=== PATIENT | female | born 1975 | race African-American/Black ===

== ENCOUNTER 2020-01-31 15:26 | Emergency (ER) | payer OTHER ==
[~2020-01-31] VITALS: Ht 162.6 cm; Wt 77.6 kg
[2020-01-31 15:32] VITALS: BP 134/71
--- NOTE | 2020-01-31 15:44 | NUR ---
PT SEEN FOR BLE SWELLING WITH PAIN L>R AND PAIN IN L FOOT/ANKLE. PT DENIES ANY CALF TENDERNESS. LUNGS SOUNDS CLEAR FLAQUITA SOB AND CP. HEART RRR. NO C/O PAIN ANYWHERE ELSE.
[2020-01-31 16:26] LABS: BASOPHILS % (AUTO) 0.6 % (0.0-2.0); EOSINOPHILS # (AUTO) 0.1 K/uL (0-0.4); HEMATOCRIT 34.8 % (36-48); HEMOGLOBIN 11.8 g/dL (12.0-16.0); LYMPHOCYTES # (AUTO) 2.8 K/uL (2.5-16.5); LYMPHOCYTES % (AUTO) 42.2 % (20.5-51.1); MEAN CORPUSCULAR HEMOGLOBIN 33 pg (27-31); MEAN CORPUSCULAR HGB CONC 34 g/dL (33-37); MONOCYTES # (AUTO) 0.5 K/uL (0.8-1.0); MONOCYTES % (AUTO) 7.8 % (1.7-9.3); NEUTROPHILS # (AUTO) 3.2 K/uL (1.8-7.7); NEUTROPHILS % (AUTO) 48.4 % (42.2-75.2); PLATELET COUNT (AUTO) 266 K/uL (140-450); RED BLOOD CELL COUNT(AUTO) 3.59 MIL/uL (4.20-5.40); RED CELL DISTRIBUTION WIDTH 15.2 % (11.6-13.7); WHITE BLOOD COUNT (AUTO) 6.7 K/uL (4.8-10.8)
[2020-01-31 16:40] LABS: ALBUMIN 3.2 g/dL (3.4-5.0); ANION GAP 10.1 (8-16); CARBON DIOXIDE 28.8 mmol/L (21-32); CREATININE 1.2 mg/dL (0.6-1.3); TOTAL BILIRUBIN 0.3 mg/dL (0.0-1.0)
[2020-01-31 16:44] LABS: POTASSIUM 2.9 mmol/L (3.5-5.1)
[2020-01-31] MEDS ORDERED: KCL 20 MEQ/WATER INJ PREMIX 100 ML IV STA (17:17)
[2020-01-31] MEDS ORDERED: POTASSIUM CHLORIDE 10 MEQ TABER PO STA (18:39)
[2020-01-31] MEDS ORDERED: PROPOFOL 1000 MG/100 ML PREMIX 100 ML IV ONE (18:45)
--- NOTE | 2020-01-31 18:59 | NUR ---
Patient discharged with v/s stable. Written and verbal after care instructions given and explained. Patient alert, oriented and verbalized understanding of instructions. Ambulatory with steady gait. All questions addressed prior to discharge. ID band removed. Patient advised to follow up with PMD. Rx of TRIAMTERENE/HYDROCHLOROTHIAZIDE given. Patient educated on indication of medication including possible reaction and side effects. Opportunity to ask questions provided and answered.
== END 2020-01-31 18:59 | disposition home or self-care (01) ==
LOC: MED 15:26
DX: E87.70 Fluid overload, unspecified (principal); E87.6 Hypokalemia; J45.909 Unspecified asthma, uncomplicated; M41.9 Scoliosis, unspecified; Z88.0 Allergy status to penicillin
CPT/HCPCS: 36415; 71045; 80053; 83880; 84484; 85025; 85610; 85730; 93005; 99285; Q0092

== ENCOUNTER 2020-03-07 11:49 | Emergency (ER) | payer OTHER ==
[~2020-03-07] VITALS: Ht 165.1 cm; Wt 84.8 kg
[2020-03-07 11:52] VITALS: BP 109/57
--- NOTE | 2020-03-07 11:56 | NUR ---
Pt taken to bed 12.
--- NOTE | 2020-03-07 12:07 | NUR ---
44 y/o female from home c/o right ankle pain s/p mechanical trip and fall yesterday. Pt states 9/10 aching pain when trying to ambulate. Unable to bear weight on ankle. Skin warm, dry, intact with mild swelling noted. Positioned for comfort, VSS
[2020-03-07 13:38] VITALS: BP 109/57
--- NOTE | 2020-03-07 13:40 | NUR ---
Patient discharged with v/s stable. Written and verbal after care instructions given and explained. Patient verbalized understanding. Ambulatory with steady gait. All questions addressed prior to discharge. Advised to follow up with PMD.
== END 2020-03-07 13:40 | disposition home or self-care (01) ==
LOC: MED 11:49
DX: S93.401A Sprain of unspecified ligament of right ankle, initial encounter (principal); S93.601A Unspecified sprain of right foot, initial encounter; M79.671 Pain in right foot; J45.909 Unspecified asthma, uncomplicated; Y93.01 Activity, walking, marching and hiking; Y93.89 Activity, other specified; Y92.89 Other specified places as the place of occurrence of the external cause; Y99.8 Other external cause status
CPT/HCPCS: 29515; 73610; 73630; 99284

== ENCOUNTER 2020-04-07 09:25 | Emergency (ER) | payer OTHER ==
[~2020-04-07] VITALS: Ht 165.1 cm; Wt 86.6 kg
[2020-04-07 09:45] VITALS: BP 104/61
--- NOTE | 2020-04-07 09:45 | NUR ---
C/O L KNEE PAIN X1 DAY. NO INJURY OR TRAUMA
[2020-04-07 10:22] VITALS: BP 104/61
== END 2020-04-07 10:22 | disposition home or self-care (01) ==
LOC: MED 09:25
DX: M13.862 Other specified arthritis, left knee (principal); G89.29 Other chronic pain; J45.909 Unspecified asthma, uncomplicated; Z98.890 Other specified postprocedural states; Z88.0 Allergy status to penicillin
CPT/HCPCS: 99282

== ENCOUNTER 2020-04-18 15:53 | Emergency (ER) | payer OTHER ==
[~2020-04-18] VITALS: Ht 165.1 cm; Wt 87.5 kg
[2020-04-18 16:15] VITALS: BP 109/64
--- NOTE | 2020-04-18 16:25 | NUR ---
HOMELESS. 44/F BIB SELF C/O BILATERAL LOWER LEGS PAIN 9/10 & SWELLING X 3 DAYS. DENIES TRAUMA. PMH:ASTHMA, SCOLIOSIS
--- NOTE | 2020-04-18 16:29 | NUR ---
Patient being evaluated by JOSE ADAME at [facility].
--- NOTE | 2020-04-18 17:01 | NUR ---
PT TAKEN TO X RAY VIA W/C, ACCOMPANIED BY [employer]ING [employer].
[2020-04-18 17:06] LABS: BASOPHILS # (AUTO) 0.1 K/uL (0.00-0.22); BASOPHILS % (AUTO) 0.9 % (0.0-2.0); EOSINOPHILS # (AUTO) 0.1 K/uL (0-0.4); EOSINOPHILS % (AUTO) 0.9 % (0.0-4.0); HEMATOCRIT 36.7 % (36-48); HEMOGLOBIN 12.2 g/dL (12.0-16.0); LYMPHOCYTES # (AUTO) 2.6 K/uL (2.5-16.5); MEAN CORPUSCULAR HEMOGLOBIN 33 pg (27-31); MEAN CORPUSCULAR HGB CONC 33 g/dL (33-37); MEAN CORPUSCULAR VOLUME 97.7 fL (80-94); MONOCYTES # (AUTO) 0.5 K/uL (0.8-1.0); MONOCYTES % (AUTO) 7.9 % (1.7-9.3); NEUTROPHILS % (AUTO) 48.3 % (42.2-75.2); PLATELET COUNT (AUTO) 284 K/uL (140-450); RED BLOOD CELL COUNT(AUTO) 3.75 MIL/uL (4.20-5.40); WHITE BLOOD COUNT (AUTO) 6.2 K/uL (4.8-10.8)
[2020-04-18 17:37] LABS: ALBUMIN 3.4 g/dL (3.4-5.0); ANION GAP 13.5 (8-16); CARBON DIOXIDE 28.5 mmol/L (21-32); PROTHROMBIN TIME 10.2 secs (10.8-13.4); TOTAL BILIRUBIN 0.3 mg/dL (0.0-1.0)
[2020-04-18 18:29] VITALS: BP 109/64
--- NOTE | 2020-04-18 18:29 | NUR ---
Patient discharged with v/s stable. Written and verbal after care instructions given and explained. Patient alert, oriented and verbalized understanding of instructions. Ambulatory with steady gait. All questions addressed prior to discharge. ID band removed. Patient advised to follow up with PMD. Rx of Triamterene/Hydrochlorothiazide 37.5mg given. Patient educated on indication of medication including possible reaction and side effects. Opportunity to ask questions provided and answered.
== END 2020-04-18 18:29 | disposition home or self-care (01) ==
LOC: MED 15:53
DX: R60.0 Localized edema (principal); M79.605 Pain in left leg; M79.604 Pain in right leg; J45.909 Unspecified asthma, uncomplicated; Z88.0 Allergy status to penicillin
CPT/HCPCS: 36415; 71045; 80053; 81002; 81025; 83880; 84484; 85025; 85610; 85730; 99284

== ENCOUNTER 2020-05-06 08:39 | Emergency (ER) | payer OTHER ==
[~2020-05-06] VITALS: Ht 165.1 cm; Wt 87.5 kg
[2020-05-06 08:48] VITALS: BP 121/64
--- NOTE | 2020-05-06 08:52 | NUR ---
TO LOBBY A/W BED AMBULATORY
[2020-05-06] MEDS ORDERED: ONDANSETRON 4 MG ODT PO ONE (09:30)
[2020-05-06 11:55] VITALS: BP 121/64
--- NOTE | 2020-05-06 11:57 | NUR ---
Patient discharged with v/s stable. Written and verbal after care instructions given and explained. Patient alert, oriented and verbalized understanding of instructions. Ambulatory with steady gait. All questions addressed prior to discharge. ID band removed. Patient advised to follow up with PMD. Rx of zofran 4mg ODT given. Patient educated on indication of medication including possible reaction and side effects. Opportunity to ask questions provided and answered.
== END 2020-05-06 11:57 | disposition home or self-care (01) ==
LOC: MED 08:39
DX: R11.0 Nausea (principal); R10.30 Lower abdominal pain, unspecified; J45.909 Unspecified asthma, uncomplicated; Z88.0 Allergy status to penicillin; Z98.890 Other specified postprocedural states
CPT/HCPCS: 81025; 99283; Q0162

== ENCOUNTER 2020-06-06 15:24 | Emergency (ER) | payer OTHER ==
[~2020-06-06] VITALS: Ht 165.1 cm; Wt 87.5 kg
[2020-06-06 15:32] VITALS: BP 101/70
--- NOTE | 2020-06-06 15:37 | NUR ---
PATIENT AMBULATED TO BED 4.
[2020-06-06 16:51] LABS: BASOPHILS # (AUTO) 0.1 K/uL (0.00-0.22); BASOPHILS % (AUTO) 0.6 % (0.0-2.0); EOSINOPHILS # (AUTO) 0.1 K/uL (0-0.4); EOSINOPHILS % (AUTO) 0.8 % (0.0-4.0); HEMOGLOBIN 12.4 g/dL (12.0-16.0); LYMPHOCYTES # (AUTO) 2.5 K/uL (2.5-16.5); LYMPHOCYTES % (AUTO) 32.3 % (20.5-51.1); MEAN CORPUSCULAR HEMOGLOBIN 33 pg (27-31); MEAN CORPUSCULAR HGB CONC 33 g/dL (33-37); MEAN CORPUSCULAR VOLUME 97.2 fL (80-94); MONOCYTES # (AUTO) 0.8 K/uL (0.8-1.0); MONOCYTES % (AUTO) 9.6 % (1.7-9.3); NEUTROPHILS # (AUTO) 4.4 K/uL (1.8-7.7); NEUTROPHILS % (AUTO) 56.7 % (42.2-75.2); PLATELET COUNT (AUTO) 257 K/uL (140-450); RED BLOOD CELL COUNT(AUTO) 3.81 MIL/uL (4.20-5.40); WHITE BLOOD COUNT (AUTO) 7.8 K/uL (4.8-10.8)
[2020-06-06 17:01] LABS: ANION GAP 8.6 (8-16); CARBON DIOXIDE 29.2 mmol/L (21-32); CREATININE 1.2 mg/dL (0.6-1.3); POTASSIUM 3.8 mmol/L (3.5-5.1)
[2020-06-06 18:26] VITALS: BP 105/68
--- NOTE | 2020-06-06 18:27 | NUR ---
Patient discharged with v/s stable. Written and verbal after care instructions given and explained. Patient alert, oriented and verbalized understanding of instructions. Ambulatory with steady gait. All questions addressed prior to discharge. ID band removed. Patient advised to follow up with PMD. Rx of Hydrochlorothiazide given. Patient educated on indication of medication including possible reaction and side effects. Opportunity to ask questions provided and answered.
== END 2020-06-06 18:27 | disposition home or self-care (01) ==
LOC: MED 15:24
DX: R60.0 Localized edema (principal); M79.604 Pain in right leg; M79.605 Pain in left leg; J45.909 Unspecified asthma, uncomplicated; Z88.0 Allergy status to penicillin
CPT/HCPCS: 36415; 80048; 83880; 84484; 85025; 99283

== ENCOUNTER 2020-09-18 13:04 | Emergency (ER) | payer MEDICAID, OTHER ==
[~2020-09-18] VITALS: Ht 162.6 cm; Wt 91.2 kg
[2020-09-18 13:17] VITALS: BP 99/50
[2020-09-18] MEDS ORDERED: HYDR12.51 PO (13:38)
[2020-09-18 13:45] VITALS: BP 99/50
== END 2020-09-18 13:44 | disposition home or self-care (01) ==
LOC: MED 13:04
DX: R60.0 Localized edema (principal); Z76.0 Encounter for issue of repeat prescription; J45.909 Unspecified asthma, uncomplicated; Z88.0 Allergy status to penicillin; Z79.899 Other long term (current) drug therapy
CPT/HCPCS: 99281

== ENCOUNTER 2020-11-10 14:52 | Emergency (ER) | payer MEDICAID ==
[~2020-11-10] VITALS: Ht 165.1 cm; Wt 56.7 kg
[~2020-11-10 14:52] MED LIST: HYDR12.51 PO
[2020-11-10 15:00] VITALS: BP 119/61
--- NOTE | 2020-11-10 15:09 | NUR ---
Pt biba for shortness of breath. Pt used 5 puffs of albuterol inhaler without any relief. [facility] started pt on albuterol med nebulizer with immediate relief. 20 gauge established in left AC. Blood sugar 98. Pt awake and alert. A&Ox4. GCS 15. Pt currently at 100% O2 saturation on albuterol nebulizer treatment. Pt states, "I feel much better." Pt placed on cardiac tele monitor. MD Lopez evaluating pt at bedside.
[2020-11-10] MEDS ORDERED: predniSONE 20 MG TAB PO ONE (15:10)
--- NOTE | 2020-11-10 15:21 | NUR ---
XRAY AT BEDSIDE
--- NOTE | 2020-11-10 15:45 | NUR ---
Pt weaned off oxygen. Pt O2 saturation 95% on RA. Pt resting comfortably with eyes closed. VSS.
[2020-11-10] MEDS ORDERED: PRED20TA5 PO (16:33)
[2020-11-10] MEDS ORDERED: ALBU0.0912 INH (16:33)
[2020-11-10 16:41] VITALS: BP 117/61
--- NOTE | 2020-11-10 16:42 | NUR ---
Patient discharged with v/s stable. Written and verbal after care instructions given and explained. Patient alert, oriented and verbalized understanding of instructions. Ambulatory with steady gait. All questions addressed prior to discharge. ID band removed. Patient advised to follow up with PMD. Rx of Proventil HFA MDI and Prednisone was given given. Patient educated on indication of medication including possible reaction and side effects. Opportunity to ask questions provided and answered.
== END 2020-11-10 16:42 | disposition home or self-care (01) ==
LOC: MED 14:52
DX: J45.901 Unspecified asthma with (acute) exacerbation (principal); I50.9 Heart failure, unspecified; Z88.0 Allergy status to penicillin; Z79.899 Other long term (current) drug therapy
CPT/HCPCS: 71045; 99283; J7512

== ENCOUNTER 2021-02-16 11:33 | Emergency (ER) | payer MEDICAID, OTHER ==
[~2021-02-16] VITALS: Ht 165.1 cm; Wt 88.5 kg
[~2021-02-16 11:33] MED LIST changes: +ALBU0.0912 INH; +PRED20TA5 PO
[2021-02-16 11:46] VITALS: BP 138/70
--- NOTE | 2021-02-16 11:57 | NUR ---
Pt to wait in lobby
--- NOTE | 2021-02-16 13:03 | NUR ---
Patient being evaluated by Dr. Garcia
--- NOTE | 2021-02-16 13:07 | NUR ---
Patient transported to [facility] by .
--- NOTE | 2021-02-16 13:17 | NUR ---
PATIENT WHEELCHAIR ASSISTED FROM XRAY DEPT TO BED 3. Addendum: 02/16/21 at 1318 by NIKOLAS PATIENT WHEELCHAIR ASSISTED FROM XRAY DEPT TO BED 4
--- NOTE | 2021-02-16 13:48 | NUR ---
45 Y/O F. BIB self from home c/o missing period for 2 months with low back pain, RLQ pain, suprapubic pain since December. +Nausea, chills. Back pain 7/10, pressure/constant, non-radiating pain. Reports concern for possibly being d/t missing period; normally has regular periods. States two test at home reading negative. Denies fever, chills, SOB, chest pain, constipation, diarrhea, dysuria, urinary symptoms. Last BM: yesterday. LMP: November. States sexually active PMH: scoliosis, asthma Meds: Albuterol A: PCN Sx: L knee
[2021-02-16] MEDS ORDERED: NAPR-54 PO (13:49)
[2021-02-16 13:55] VITALS: BP 138/70
== END 2021-02-16 13:55 | disposition home or self-care (01) ==
LOC: MED 11:33
DX: M54.59 Other low back pain (principal); J45.909 Unspecified asthma, uncomplicated; I50.9 Heart failure, unspecified; Z88.0 Allergy status to penicillin
CPT/HCPCS: 72100; 81002; 81025; 99283

== ENCOUNTER 2021-04-11 12:52 | Emergency (ER) | payer OTHER ==
[~2021-04-11] VITALS: Ht 165.1 cm; Wt 88.1 kg
[~2021-04-11 12:52] MED LIST changes: +NAPR-54 PO
[2021-04-11 12:58] VITALS: BP 158/78
[2021-04-11] MEDS ORDERED: IBUP-1842 PO (13:43)
--- NOTE | 2021-04-11 13:57 | NUR ---
PER [facility] PT RIGHT ANKLE WAS PLACE IN AN EDGARD WRAP AMD PT WAS GIVEN CRUTHES. PT WAS ALSO TAUGHT HOW TO USE CRUTCHES.
--- NOTE | 2021-04-11 14:02 | NUR ---
Patient discharged with v/s stable. Written and verbal after care instructions given and explained. Patient alert, oriented and verbalized understanding of instructions. Ambulatory with steady gait WITH CRUTCHES All questions addressed prior to discharge. ID band removed. Patient advised to follow up with PMD. Rx of motrin given. Patient educated on indication of medication including possible reaction and side effects. Opportunity to ask questions provided and answered.
--- NOTE | 2021-04-11 14:04 | NUR ---
NO NURSING INTERVENTIONS PERFORMED
== END 2021-04-11 14:02 | disposition home or self-care (01) ==
LOC: MED 12:52
DX: S93.402A Sprain of unspecified ligament of left ankle, initial encounter (principal); J45.909 Unspecified asthma, uncomplicated; I50.9 Heart failure, unspecified; Z79.899 Other long term (current) drug therapy; Z88.0 Allergy status to penicillin; Z59.00 Homelessness unspecified; W22.8XXA Striking against or struck by other objects, initial encounter; Y93.01 Activity, walking, marching and hiking; Y92.488 Other paved roadways as the place of occurrence of the external cause; Y99.8 Other external cause status
CPT/HCPCS: 73610; 99283